=== PATIENT | female | born 1980 | race Caucasian/White ===

== ENCOUNTER → 2017-03-18 | Outpatient (CLI) | payer MEDICAID ==
--- NOTE | 2017-03-18 15:16 | RADIOLOGY IMAGING REPORT ---
FACILITY: [facility] [place] PATIENT NAME: Erlin Barr : 1980 MR: [id number] V: [id number] EXAM DATE: ORDERING PHYSICIAN: KADE MEZA TECHNOLOGIST: Location: [facility] Patient: Erlin Barr : 1980 Visit/Account:[id number] Date of Sevice: 03/18/2017 DEXA Scan Clinical history: Long-term use of Depo-Provera. Comparison: None available. LUMBAR SPINE: The bone mineral density (BMD) measured from L1-L4 correlates with a Z-score 0.9 and a T-score of 0.4 which is Normal as defined by the World Health Organization. The corresponding risk of fracture in the lumbar spine is Not increased compared with a young adult reference population. HIP: Bone mineral density (BMD) measured in the Left total hip region correlates with a Z-score 0.4 and a T-score of -0.2 which is Normal as defined by the World Health Organization. The corresponding risk of fracture in the hip is Not increased compared with a young adult reference population. T score l eft femoral neck zero Bone mineral density (BMD) measured in the Femoral Neck region measures 1.045 g/cm2. Impression: 1. Lumbar spine: Normal. 2. Left Hip: Normal. 3. Femoral Neck: Bone Mineral Density is 1.045 g/cm2 The next DEXA scan of this patient should include the following sites: L1-L4 and the left hip. FRAX? WHO Fracture Risk Assessment Tool link: <http://www.shef.ac.uk/FRAX/tool.jsp?locationValue=9> PLEASE NOTE: 1) The World Health Organization defines low BMD as follows: T-score Normal > -1 Osteopenia < -1 and > -2.5 Osteoporosis < -2.5 without fractures Established osteoporosis < -2.5 with fractures 2) In general, you may wish to consider: Diagnosis Treatment Follow-up DEXA Normal BMD Prevention 2-3 years Osteopenia Prevention/therapy 1-2 years Osteoporosis Therapy Yearly 3) Fracture risk estimated from the T-score is more accurate for vertebral fractures (often spontane ous) than for hip fractures. Report Dictated By: Farzana Thompson MD at 03/18/2017 3:11 PM Report E-Signed By: Farzana Thompson MD at 03/18/2017 3:11 PM WSN:[email or web address]
== END ==
LOC: RAD 14:07
PROVIDERS: ATTEND Nurse Practitioner
DX: Z79.899 Other long term (current) drug therapy (principal)
CPT/HCPCS: 77080